=== PATIENT | female | born 1970 | race Two or more races ===

== ENCOUNTER → 2017-11-27 16:59 | Outpatient (CLI) | payer OTHER | END | disposition home or self-care (01) | LOC: RAD 16:59 | DX: M77.52 Other enthesopathy of left foot and ankle (principal) ==

== ENCOUNTER 2019-02-28 09:13 | Outpatient (CLI) | payer OTHER | END 2019-02-28 09:14 | disposition home or self-care (01) | LOC: RAD 09:13 | DX: M79.672 Pain in left foot (principal) ==

== ENCOUNTER 2019-03-31 16:16 | Outpatient (CLI) | payer OTHER | END 2019-03-31 16:20 | disposition home or self-care (01) | LOC: RAD 16:16 | DX: M79.672 Pain in left foot (principal) ==

== ENCOUNTER 2021-02-23 10:26 | Outpatient (CLI) | payer OTHER | END 2021-02-23 10:45 | disposition home or self-care (01) | LOC: RAD 10:26 | PROVIDERS: ATTEND Physical Medicine & Rehabilitation | DX: M50.323 Other cervical disc degeneration at C6-C7 level (principal); M25.561 Pain in right knee ==

== ENCOUNTER 2021-08-13 08:00 | Outpatient (CLI) | payer OTHER | END 2021-08-13 08:30 | disposition home or self-care (01) | LOC: PPH VACUNA 08:00 | PROVIDERS: ATTEND Emergency Medicine Pediatric Emergency Medicine | DX: Z23 Encounter for immunization (principal) ==

== ENCOUNTER → 2022-07-14 | Outpatient (CLI) | payer OTHER | END | disposition home or self-care (01) | LOC: RAD 15:25 | PROVIDERS: ATTEND Physical Medicine & Rehabilitation | DX: M54.59 Other low back pain (principal) ==

== ENCOUNTER 2024-01-13 14:33 | Outpatient (CLI) | payer OTHER | END 2024-01-13 14:35 | disposition home or self-care (01) | LOC: TOM 14:33 | PROVIDERS: ATTEND Physical Medicine & Rehabilitation | DX: M54.17 Radiculopathy, lumbosacral region (principal) ==